=== PATIENT | female | born 1955 | race Caucasian/White ===

== ENCOUNTER 2023-01-31 07:22 | Emergency (ER) | payer OTHER, MEDICARE, SELFPAY ==
[2023-01-31 07:23] VITALS: BP 153/66; PULSE 62; RESP 18; TEMP 36.7; O2SAT 99; BMI 39.4
--- NOTE | 2023-01-31 08:22 | ED.SKABFB ---
HPI - Skin/Abscess/Foreign Bdy General Chief complaint: Skin/Abscess/Foreign Body Stated complaint: r leg laceration Time Seen by Provider: 01/31/23 07:56 Source: patient Mode of arrival: ambulatory History of Present Illness HPI narrative: 67-year-old female who presents with baseline lower leg varicosities and states that she got up this morning, scratch the back of her leg which then began bleeding and was not easy does stop been so she was brought in by her daughter. Related Data Allergies Allergy/AdvReac Type Severity Reaction Status Date / Time No Known Allergies Allergy Verified 01/31/23 07:27 Review of Systems Review of Systems: Pertinent positives and negatives as stated in HPI PMF Past Medical History Source: nursing notes reviewed Social History Social History Advance Directives: No Advance Directives Information Provided: Yes Physical Exam Vital Signs: Vital Signs: Last Vital Signs Temp 98.0 F 01/31/23 07:23 Pulse 62 01/31/23 07:23 Resp 18 01/31/23 07:23 BP 153/66 H 01/31/23 07:23 Pulse Ox 99 01/31/23 07:23 O2 Del Method Room Air 01/31/23 07:23 BMI result Body Mass Index 39.4 VITAL SIGNS: Reviewed. GENERAL: Well developed, well nourished, in no acute distress. HEAD: Normocephalic/atraumatic EYES: PERRLA, EOMI LUNGS: Normal breath sounds. No adventitious sounds or accessory muscle use. SpO2<99> CARDIOVASCULAR: Regular rate and rhythm without noted murmurs ABDOMEN: Soft, non-tender, non-distended with bowel sounds. MUSCULOSKELETAL: No tenderness, deformities, or effusions noted on gross inspection. EXTREMITIES: No cyanosis, clubbing or edema; RIGHT LOWER EXTREMITY: Very small area of bleeding after cleaning, applied Surgicel simply for expedient see of hemostasis, then applied to by to use as well as a 4 in Mao wrap for additional relief of pressure.. SKIN: Inspection of the skin reveals no rashes NEUROLOGIC: Alert and oriented x 4. Strength and sensation to light touch were grossly intact x 4. Medical Decision Making Medical Decision Making MDM Narrative: 67-year-old female with elevated BMI and lower extremity varicosities with with superficial injury to 1 of the venous varicosities, currently hemostatic with. Cautioned patient against scratching due to possible infection as well as injury to her varicose veins, also recommended that she begin using compression stockings. She is otherwise stable for discharge to home. Differential Diagnosis Please see the discussion above Discharge Plan Discharge Clinical Impression: Varicose vein of leg, Superficial abrasion Patient Disposition: Home, Self-Care Instructions: Venous Insufficiency (DC) Additional Instructions: 1. Resume all home medications as prescribed. 2. Recommend initiation of compression stockings: You will need to measure the circumference of your thigh, purchased stockings that are no higher than your knees, and they must to produce at least 30 mmHg. Return to the ER for any worsening symptoms. Referrals: Darrell Montenegro III, MD [Primary Care Provider] -
--- NOTE | 2023-01-31 08:36 | PC.NURSE ---
dsd and davonte wrap in place right lower leg, no active bleeding currently
== END 2023-01-31 08:50 | disposition home or self-care (01) ==
PROVIDERS: Emergency Provider Student in an Organized Health Care Education/Training Program; PCP Internal Medicine
DX: S80.811A Abrasion, right lower leg, initial encounter (principal); I83.91 Asymptomatic varicose veins of right lower extremity; X58.XXXA Exposure to other specified factors, initial encounter; Y93.9 Activity, unspecified; Y92.9 Unspecified place or not applicable; Y99.9 Unspecified external cause status
CPT/HCPCS: 99282; 99283